=== PATIENT | female | born 1990 | race American Indian/Alaskan Native ===

== ENCOUNTER 2018-12-02 10:03 | Emergency (ER) | payer BC ==
[2018-12-02 10:16] VITALS: BP 117/73
[2018-12-02] MEDS ORDERED: IBUPROFEN PO ONE (10:27)
--- NOTE | 2018-12-02 10:40 | Emergency Department Report ---
ED Lower Extremity HPI - General Chief Complaint: Extremity Injury, Lower Stated Complaint: HURT (R) ANKLE Time Seen by Provider: 12/02/18 10:26 Source: patient Mode of arrival: Ambulatory Limitations: No Limitations - History of Present Illness Initial Comments: This is a 28-year-old female nontoxic, well nourished in appearance, no acute signs of distress presents to the ED with c/o of right ankle pain 1 day. Patient stated that yesterday she twisted her ankle and felt a pop sensation. Patient denies any other trauma. Patient denies any numbness, tingling, fever, chills, nausea, vomiting, chest pain, shortness of breath, headache, stiff neck. Patient denies any joint swelling or joint redness. Patient denies decreased range of motion. Patient stated has decreased gait due to pain. Patient denies any allergies or significant past medical history. MD Complaint: ankle injury -: days(s) (1) Injury: Ankle: Right Severity: mild Severity scale (0 -10): 8 Improves With: immobilization Worsens With: weight bearing, movement, palpation Associated Symptoms: snap/pop sensation, swelling, able to partially bear weight, ambulatory. denies: numbness, tingling, unable to bear weight - Related Data Previous Rx's Medication Instructions Recorded Last Taken Type Cyclobenzaprine [Flexeril 10 MG 10 mg PO TID PRN #20 tablet 06/27/14 Unknown Rx TAB] Ciprofloxacin HCl [Ciprofloxacin 500 mg PO Q12HR #14 tab 01/23/16 Unknown Rx TAB] guaiFENesin/CODEINE [Robitussin AC] 10 ml PO Q6HR PRN #180 ml 01/23/16 Unknown Rx predniSONE [Deltasone] 2 tab PO QDAY #10 tab 01/23/16 Unknown Rx Acetaminophen/Codeine [Tylenol 1 tab PO Q6H PRN #12 tab 12/02/18 Unknown Rx /Codeine # 3 tab] Ibuprofen [Motrin] 600 mg PO Q8H PRN #20 tablet 12/02/18 Unknown Rx Allergies Allergy/AdvReac Type Severity Reaction Status Date / Time No Known Allergies Allergy Verified 10/05/15 10:38 ED Review of Systems ROS: Stated complaint: HURT (R) ANKLE Other details as noted in HPI Constitutional: denies: chills, fever Eyes: denies: eye pain, eye discharge, vision change ENT: denies: ear pain, throat pain Respiratory: denies: cough, shortness of breath, wheezing Cardiovascular: denies: chest pain, palpitations Endocrine: no symptoms reported Gastrointestinal: denies: abdominal pain, nausea, diarrhea Genitourinary: denies: urgency, dysuria, discharge Musculoskeletal: denies: back pain, joint swelling, arthralgia Skin: denies: rash, lesions Neurological: denies: headache, weakness, paresthesias Psychiatric: denies: anxiety, depression Hematological/Lymphatic: denies: easy bleeding, easy bruising ED Past Medical Hx - Past Medical History Previous Medical History?: No Hx Hypertension: No Hx Congestive Heart Failure: No Hx Diabetes: No Hx Asthma: No Hx COPD: No Additional medical history: Vaginal delivery 10-05-2015 - Surgical History Past Surgical History?: Yes Additional Surgical History: D&C. Sweat glands removed - Social History Smoking Status: Current Every Day Smoker Substance Use Type: None - Medications Home Medications: Home Medications Medication Instructions Recorded Confirmed Last Taken Type Cyclobenzaprine [Flexeril 10 MG 10 mg PO TID PRN #20 tablet 06/27/14 Unknown Rx TAB] Ciprofloxacin HCl [Ciprofloxacin 500 mg PO Q12HR #14 tab 01/23/16 Unknown Rx TAB] guaiFENesin/CODEINE [Robitussin AC] 10 ml PO Q6HR PRN #180 ml 01/23/16 Unknown Rx predniSONE [Deltasone] 2 tab PO QDAY #10 tab 01/23/16 Unknown Rx Acetaminophen/Codeine [Tylenol 1 tab PO Q6H PRN #12 tab 12/02/18 Unknown Rx /Codeine # 3 tab] Ibuprofen [Motrin] 600 mg PO Q8H PRN #20 tablet 12/02/18 Unknown Rx ED Physical Exam - General Limitations: No Limitations General appearance: alert, in no apparent distress - Head Head exam: Present: atraumatic, normocephalic - Neck Neck exam: Present: normal inspection, full ROM - Extremities Exam Extremities exam: Present: normal inspection, full ROM (with pain), tenderness, normal capillary refill. Absent: joint swelling - Expanded Lower Extremity Exam Right Hip exam: Present: normal inspection, full ROM Upper Leg exam: Present: normal inspection, full ROM Knee exam: Present: normal inspection, full ROM Lower Leg exam: Present: normal inspection, full ROM Ankle exam: Present: normal inspection, full ROM, tenderness, swelling. Absent: abrasion, laceration, ecchymosis, deformity, crepidus, dislocation, erythema, anterior draw sign Foot/Toe exam: Present: normal inspection, full ROM Neuro vascular tendon exam: Present: no vascular compromise Gait: Positive: observed and limited by pain - Back Exam Back exam: Present: normal inspection, full ROM - Neurological Exam Neurological exam: Present: alert, oriented X3 - Psychiatric Psychiatric exam: Present: normal affect, normal mood - Skin Skin exam: Present: warm, dry, intact, normal color. Absent: rash ED Course Vital Signs 12/02/18 12/02/18 12/02/18 10:13 10:47 11:23 Temperature 98.6 F Pulse Rate 91 H Respiratory 16 18 18 Rate Blood Pressure 117/73 O2 Sat by Pulse 100 Oximetry - Reevaluation(s) Reevaluation #1: 12/02/18 11:08 Patient is speaking in full sentences with no signs of distress noted. ED Lower Extremity MDM - Medical Decision Making This is a 28-year-old female that presents with right ankle fracture. Patient is stable and was examined by me. I referred patient to an orthopedic doctor for further evaluation for possible MRI. X-ray has been obtained and dictated by the radiologist. Patient is notified of the x-ray report with noted by the patient. Patient does have normal gait with no tenderness and no joint swelling. No ecchymosis. no joint redness or swelling. Not warm to touch. No signs of cellulites present. Patient received ankle short leg posterior splint and crutches and was educated by RN how to use crutches. Post splint assessment: neurovasular intact; normal cap refill <2 second; normal sensation; denies decreaed sensation; normal ROM of digits. Patient was instructed to RICE therapy. Patient received Motrin for pain. Patient is discharged with Motrin. At time of discharge, the patient does not seem toxic or ill in appearance. No acute signs of distress noted. Patient agrees to discharge treatment plan of care. No further questions noted by the patient. Critical care attestation.: If time is entered above; I have spent that time in minutes in the direct care of this critically ill patient, excluding procedure time. ED Disposition Clinical Impression: Closed right ankle fracture Qualifiers: Encounter type: initial encounter Qualified Code(s): S82.891A - Other fracture of right lower leg, initial encounter for closed fracture Disposition: DC-01 TO HOME OR SELFCARE Is pt being admited?: No Does the pt Need Aspirin: No Condition: Stable Instructions: Crutch Instructions (ED), RICE Therapy (ED), Ankle Fracture (ED), Splint Care (ED) Additional Instructions: Follow-up with a orthopedic doctor in 3-5 days or if symptoms worsen and continue return to emergency room as soon as possible. Do not operate any machinery while taking Tylenol with codeine as this may cause drowsiness. Prescriptions: Acetaminophen/Codeine [Tylenol /Codeine # 3 tab] 1 tab PO Q6H PRN #12 tab PRN Reason: Pain , Severe (7-10) Ibuprofen [Motrin] 600 mg PO Q8H PRN #20 tablet PRN Reason: Pain Referrals: PRIMARY CAREMD [Primary Care Provider] - 3-5 Days ROSALINA TOTH MD [Staff Physician] - 3-5 Days [facility] [Outside] - 3-5 Days Forms: Work/School Release Form(ED)
--- NOTE | 2018-12-02 11:50 | XRay Report ---
FINAL REPORT EXAM: XR ANKLE 3+V RT HISTORY: right ankle pain TECHNIQUE: AP, oblique and lateral radiographs of the right ankle. PRIORS: None. FINDINGS: There is a transverse lucency through the tip of the lateral malleolus. No dislocation. Normal mineralization. No soft tissue abnormality. The ankle mortise is symmetric. Os supra naviculare is seen. IMPRESSION: Possible nondisplaced acute fracture through the tip of the lateral malleolus of the right ankle.
== END 2018-12-02 12:33 | disposition home or self-care (01) ==
LOC: ED 10:03
DX: S82.891A Other fracture of right lower leg, initial encounter for closed fracture (principal); F17.200 Nicotine dependence, unspecified, uncomplicated; X50.9XXA Other and unspecified overexertion or strenuous movements or postures, initial encounter; Y93.89 Activity, other specified; Y92.89 Other specified places as the place of occurrence of the external cause; Y99.8 Other external cause status

== ENCOUNTER 2020-01-31 10:57 | Outpatient (CLI) | payer BC ==
[2020-01-31 11:32] LABS: Basophils # (Auto) 0.1 K/mm3 (0.0-0.1); Eosinophils % (Auto) 0.2 % (0.0-4.3); Hematocrit 41.4 % (30.3-42.9); Lymphocytes # (Auto) 3.5 K/mm3 (1.2-5.4); Lymphocytes % (Auto) 30.8 % (13.4-35.0); Mean Corpuscular HGB Conc 34 % (30-34); Mean Corpuscular Volume 84 fl (79-97); Monocytes # (Auto) 0.8 K/mm3 (0.0-0.8); Monocytes % (Auto) 7.3 % (0.0-7.3); Platelet Count 263 K/mm3 (140-440); Red Blood Count 4.91 M/mm3 (3.65-5.03); Red Cell Distribution Width 13.5 % (13.2-15.2)
[2020-01-31 11:49] LABS: Alanine Aminotransferase 11 units/L (7-56); Albumin 4.3 g/dL (3.9-5); BUN/Creatinine Ratio 14; Blood Urea Nitrogen 10 mg/dL (7-17); Calcium 9.5 mg/dL (8.4-10.2); Chol/HDL Ratio 4.86 %; HDL Cholesterol 36 mg/dL (40-59); Hemolysis Index 3; LDL Cholesterol,Direct 133 mg/dL (50-130)
== END 2020-01-31 10:58 | disposition home or self-care (01) ==
LOC: LAB 10:57
PROVIDERS: ATTEND Internal Medicine
DX: Z00.00 Encounter for general adult medical examination without abnormal findings (principal); Z13.220 Encounter for screening for lipoid disorders; Z13.29 Encounter for screening for other suspected endocrine disorder; Z13.21 Encounter for screening for nutritional disorder
CPT/HCPCS: 36415; 80053; 80061; 82607; 82652; 83036; 84443; 85025

== ENCOUNTER 2020-11-11 18:32 | Emergency (ER) | payer BC ==
--- NOTE | 2020-11-11 20:54 | Event Note ---
ED Screening Note ED Screening Note: two days ago began having sore throat +frequent dry cough states she has chest discomfort after coughing +rhinorrhea states she is awaiting her COVID 19 test results states she was diagnosed with tonsillitis, and was called in medications but has not picked it up yet no taste no appetite no PMHx no allergies to meds no sick contact no recent travel LNMP: currently on cycle This initial assessment/diagnostic orders/clinical plan/treatment(s) is/are subject to change based on patients health status, clinical progression and re- assessment by fellow clinical providers in the ED. Further treatment and workup at subsequent clinical providers discretion. Patient/guardian urged not to elope from the ED as their condition may be serious if not clinically assessed and managed. Initial orders include: CXR
[2020-11-11] MEDS ORDERED: IBUPROFEN 800 MG TAB PO ONE (21:28)
[2020-11-11] MEDS ORDERED: predniSONE 20 MG TAB PO ONE (21:28)
[2020-11-11] MEDS ORDERED: AMOXICILLIN/K CLAV 875/125MG TAB PO ONE (21:28)
--- NOTE | 2020-11-11 21:33 | XRay Report ---
CHEST 2 VIEWS INDICATION / CLINICAL INFORMATION: frequent cough. COMPARISON: None available. FINDINGS: SUPPORT DEVICES: None. HEART / MEDIASTINUM: No significant abnormality. LUNGS / PLEURA: No significant pulmonary or pleural abnormality. No pneumothorax. ADDITIONAL FINDINGS: No significant additional findings. IMPRESSION: No acute cardiopulmonary abnormality. Signer Name: Tong Crow MD Signed: 11/11/2020 9:28 PM Workstation Name: [id number]
--- NOTE | 2020-11-11 21:40 | Emergency Department Report ---
ED General Adult HPI - General Chief complaint: Chest Pain Stated complaint: PRESSURE ON CHEST, SOB Time Seen by Provider: 11/11/20 20:52 Source: patient Mode of arrival: Ambulatory Limitations: No Limitations - History of Present Illness Initial comments: Patient 30-year-old female with a history of bronchitis currently diagnosed with strep throat treated with antibiotics by PCP but however she has not picked up prescription, patient states went to urgent care tonight and was referred to ED for tachycardia. Symptoms tonight include sore throat with tonsillar exudate. There is no fevers or chills. Symptoms are exacerbated by swallowing. Patient denies shortness of breath there is no wheezing there is no stridor. Symptoms are relieved by nothing tried. - Related Data Previous Rx's Medication Instructions Recorded Last Taken Type Cyclobenzaprine [Flexeril 10 MG 10 mg PO TID PRN #20 tablet 06/27/14 Unknown Rx TAB] Ciprofloxacin HCl [Ciprofloxacin 500 mg PO Q12HR #14 tab 01/23/16 Unknown Rx TAB] guaiFENesin/CODEINE [Robitussin AC] 10 ml PO Q6HR PRN #180 ml 01/23/16 Unknown Rx predniSONE [Deltasone] 2 tab PO QDAY #10 tab 01/23/16 Unknown Rx Acetaminophen/Codeine [Tylenol 1 tab PO Q6H PRN #12 tab 12/02/18 Unknown Rx /Codeine # 3 tab] Ibuprofen [Motrin] 600 mg PO Q8H PRN #20 tablet 12/02/18 Unknown Rx Ibuprofen [Motrin 800 MG tab] 800 mg PO Q8HR PRN #30 tablet 11/11/20 Unknown Rx predniSONE [Deltasone] 40 mg PO QDAY 5 Days #10 tab 11/11/20 Unknown Rx Allergies Allergy/AdvReac Type Severity Reaction Status Date / Time No Known Allergies Allergy Verified 11/11/20 18:33 ED Review of Systems ROS: Stated complaint: PRESSURE ON CHEST, SOB Other details as noted in HPI Constitutional: denies: chills, fever Eyes: denies: eye pain, eye discharge, vision change ENT: throat pain, congestion. denies: ear pain, dental pain, hearing loss Respiratory: denies: cough, shortness of breath, wheezing Cardiovascular: denies: chest pain, palpitations Endocrine: no symptoms reported Gastrointestinal: denies: abdominal pain, nausea, diarrhea Genitourinary: denies: urgency, dysuria, discharge Musculoskeletal: denies: back pain, joint swelling, arthralgia Skin: denies: rash, lesions Neurological: denies: headache, weakness, paresthesias Psychiatric: denies: anxiety, depression Hematological/Lymphatic: denies: easy bleeding, easy bruising ED Past Medical Hx - Past Medical History Hx Hypertension: No Hx Congestive Heart Failure: No Hx Diabetes: No Hx Asthma: No Hx COPD: No Additional medical history: Vaginal delivery 10-05-2015 - Surgical History Additional Surgical History: D&C. Sweat glands removed - Social History Smoking Status: Current Every Day Smoker Substance Use Type: None - Medications Home Medications: Home Medications Medication Instructions Recorded Confirmed Last Taken Type Cyclobenzaprine [Flexeril 10 MG 10 mg PO TID PRN #20 tablet 06/27/14 Unknown Rx TAB] Ciprofloxacin HCl [Ciprofloxacin 500 mg PO Q12HR #14 tab 01/23/16 Unknown Rx TAB] guaiFENesin/CODEINE [Robitussin AC] 10 ml PO Q6HR PRN #180 ml 01/23/16 Unknown Rx predniSONE [Deltasone] 2 tab PO QDAY #10 tab 01/23/16 Unknown Rx Acetaminophen/Codeine [Tylenol 1 tab PO Q6H PRN #12 tab 12/02/18 Unknown Rx /Codeine # 3 tab] Ibuprofen [Motrin] 600 mg PO Q8H PRN #20 tablet 12/02/18 Unknown Rx Ibuprofen [Motrin 800 MG tab] 800 mg PO Q8HR PRN #30 tablet 11/11/20 Unknown Rx predniSONE [Deltasone] 40 mg PO QDAY 5 Days #10 tab 11/11/20 Unknown Rx ED Physical Exam - General Limitations: No Limitations General appearance: alert, in no apparent distress - Head Head exam: Present: atraumatic, normocephalic - Eye Eye exam: Present: normal appearance, EOMI Pupils: Present: normal accommodation - ENT ENT exam: Present: mucous membranes moist, TM's normal bilaterally, normal external ear exam - Expanded ENT Exam Expanded Ear exam: Present: normal external inspection Throat exam: Positive: tonsillar erythema, tonsillomegaly, tonsillar exudate, other (uvula midline mild no stridor no wheezing minimal swelling, airway is patent). Negative: R peritonsillar mass, L peritonsillar mass - Neck Neck exam: Present: normal inspection, full ROM, lymphadenopathy. Absent: tenderness - Respiratory Respiratory exam: Present: normal lung sounds bilaterally. Absent: respiratory distress, wheezes, stridor, chest wall tenderness - Cardiovascular Cardiovascular Exam: Present: regular rate, normal rhythm, normal heart sounds. Absent: systolic murmur, diastolic murmur, rubs, gallop - GI/Abdominal GI/Abdominal exam: Present: soft, normal bowel sounds. Absent: distended, tenderness, guarding, rebound, rigid, bruit, hernia - Rectal Rectal exam: Present: deferred - Extremities Exam Extremities exam: Present: normal inspection, full ROM. Absent: tenderness - Back Exam Back exam: Present: normal inspection, full ROM. Absent: tenderness, CVA tenderness (R), CVA tenderness (L) - Neurological Exam Neurological exam: Present: alert, oriented X3, CN II-XII intact, normal gait - Psychiatric Psychiatric exam: Present: normal affect, normal mood - Skin Skin exam: Present: warm, dry, intact, normal color. Absent: rash ED Course Vital Signs 11/11/20 18:35 Temperature 98.4 F Pulse Rate 109 H Respiratory 16 Rate Blood Pressure 123/87 O2 Sat by Pulse 88 Oximetry ED Medical Decision Making - EKG Data EKG shows normal: sinus rhythm Rate: normal - EKG Data Interpretation: normal EKG (NSR, No STEMI, EKG interp by ED attending) - Radiology Data Radiology results: report reviewed, image reviewed Findings Reporting MD: Tong Crow Dictation Time: November 11, 2020 20:28 Cloth Dyeing Range Tender: Not available Hand Scudder Date: CHEST 2 VIEWS INDICATION / CLINICAL INFORMATION: frequent cough. COMPARISON: None available. FINDINGS: SUPPORT DEVICES: None. HEART / MEDIASTINUM: No significant abnormality. LUNGS / PLEURA: No significant pulmonary or pleural abnormality. No pneumothorax. ADDITIONAL FINDINGS: No significant additional findings. IMPRESSION: No acute cardiopulmonary abnormality. Signer Name: Tong Crow MD Signed: 11/11/2020 8:28 PM Workstation Name: [id number] - Medical Decision Making Chest x-ray normal no infiltrates no opacities, EKG normal sinus rhythm no ST elevated [place], EKG interpreted by ED attending. There is no chest pain. There is no shortness of breath. There is no nausea vomiting. This is pharyngitis pt will fill rx, nsais, and short course of prednisone, us albuterol inhaler as needed. pt verbalized agreement and understanding of discharge plan. Critical care attestation.: If time is entered above; I have spent that time in minutes in the direct care of this critically ill patient, excluding procedure time. ED Disposition Clinical Impression: Pharyngitis Qualifiers: Pharyngitis/tonsillitis etiology: streptococcus Qualified Code(s): J02.0 - Streptococcal pharyngitis Disposition: TO HOME OR SELFCARE Is pt being admited?: No Does the pt Need Aspirin: No Condition: Stable Instructions: Pharyngitis Prescriptions: predniSONE [Deltasone] 40 mg PO QDAY 5 Days #10 tab Ibuprofen [Motrin 800 MG tab] 800 mg PO Q8HR PRN #30 tablet PRN Reason: Pain Referrals: GADIEL MINOR MD [Referring] - 3-5 Days Forms: Work/School Release Form(ED) Time of Disposition: 21:55
[2020-11-11 22:20] VITALS: BP 135/81
== END 2020-11-11 22:19 | disposition home or self-care (01) ==
LOC: ED 18:32
DX: J02.0 Streptococcal pharyngitis (principal); F17.200 Nicotine dependence, unspecified, uncomplicated; Z79.899 Other long term (current) drug therapy
CPT/HCPCS: 71046; 93005; 99283; J7512